=== PATIENT | female | born 1960 | race Asian ===

== ENCOUNTER → 2017-03-07 | Outpatient (CLI) | payer MEDICARE, OTHER ==
[2017-03-07 11:43] LABS: AADO2 Arterial 44.3 mmHg (7.0-24.0); Allen Test ACCEPTAB; Arterial Base Excess 1.9 mmol/L (-3.0-3); Arterial Blood Gas Oxygen Sat 85.5 mmHG (95.0-98.0); Arterial COHb 0.1 % (0.0-3.0); Arterial Fraction of Oxyhgb 85.3 % (93.0-99.0); Arterial HCO3 27.8 mmol/L (22.0-26.0); Arterial MetHb 0.1 % (0.0-1.5); Arterial Total Hemglobin 14.7 g/dl (12.0-18.0); Arterial pCO2 48.2 mmhg (35-45); MODE ROOM AIR; Site Left Radial
== END | disposition home or self-care (01) ==
LOC: PUL 11:01
DX: J43.8 Other emphysema (principal)
CPT/HCPCS: 36600; 82803

== ENCOUNTER 2018-02-10 08:18 | Inpatient (IN) | payer MEDICARE, OTHER ==
[2018-02-10] MEDS: ALBUTEROL 0.5% (NEB) 2.5 MG/0.5 ML AMP INH (08:36)
[2018-02-10 08:48] LABS: ADD MAN DIFF? NO
[2018-02-10 08:50] LABS: WHITE BLOOD COUNT 12.9 10^3/ul (4.8-10.8)
[2018-02-10 08:50] LABS: ABNORMAL IP MESSAGE 1; BASOPHIL # 0.1 10^3/ul (0.0-0.1); BASOPHILS % 0.5 % (0.0-2.0); EOSINOPHILS # 0.2 10^3/ul (0.0-0.5); EOSINOPHILS % 1.6 % (0.0-7.0); HEMATOCRIT 42.9 % (37.0-47.0); HEMOGLOBIN 13.5 g/dl (12.0-16.0); LYMPHOCYTES # 2.3 10^3/ul (0.8-2.9); MEAN CORPUSCULAR HEMOGLOBIN 30.1 pg (29.0-33.0); MEAN CORPUSCULAR HGB CONC 31.5 g/dl (32.0-37.0); MEAN CORPUSCULAR VOLUME 95.8 fl (82.0-101.0); MEAN PLATELET VOLUME 9.4 fl (7.4-10.4); MONOCYTES % 15.5 % (0.0-11.0); NEUTROPHIL # 8.2 10^3/ul (1.6-7.5); NEUTROPHILS % 63.9 % (39.0-77.0); PLATELET COUNT 382 10^3/UL (140-415); RED BLOOD COUNT 4.48 10^6/ul (4.20-5.40); RED CELL DISTRIBUTION WIDTH 12.3 % (11.5-14.5)
[2018-02-10 08:55] LABS: POSITIVE DIFF @See below
[2018-02-10] MEDS: METHYLPREDNISOLONE 125 MG INJ IV ×3 (08:57→17:04)
[2018-02-10 09:18] LABS: ALANINE AMINOTRANSFERASE 14 IU/L (13-69); ALBUMIN 4.4 g/dl (3.3-4.9); ALBUMIN/GLOBULIN RATIO 1.22; ALKALINE PHOSPHATASE 94 IU/L (42-121); ANION GAP 9 (5-13); ASPARTATE AMINO TRANSFERASE 34 IU/L (15-46); BILIRUBIN,INDIRECT 0.2 mg/dl (0-1.1); BILIRUBIN,TOTAL 0.2 mg/dl (0.2-1.3); BLOOD UREA NITROGEN 8 mg/dl (7-20); CALCIUM 9.4 mg/dl (8.4-10.2); CARBON DIOXIDE 38 mmol/L (21-31); CHLORIDE 96 mmol/L (97-110); CREATININE 0.54 mg/dl (0.44-1.00); Estimated GFR > 60 mL/min (>60); GLUCOSE 174 mg/dl (70-220); POTASSIUM 4.7 mmol/L (3.5-5.1); SODIUM 143 mmol/L (135-144)
[2018-02-10 09:30] LABS: TROPONIN-I < 0.012 ng/ml (0.000-0.120)
[2018-02-10] MEDS: ONDANSETRON 4 MG INJ IV (10:19)
[2018-02-10] MEDS: HYDROmorphONE 1 MG/ML SYG IV (10:20)
[2018-02-10] MEDS: CEFTRIAXONE 1 GM/50 ML (PMX) 50 ML IVPB (10:20)
[2018-02-10] MEDS ORDERED: ONDANSETRON 4 MG INJ IV ×2 (10:30→11:00)
[2018-02-10] MEDS ORDERED: ACETAMINOPHEN 325 MG TAB PO ×2 (10:30→11:00)
[2018-02-10] MEDS ORDERED: NACL 0.9% 3 ML SYG IV (11:00)
[2018-02-10] MEDS ORDERED: LIFITEGRAST BOTH EYES (11:00)
[2018-02-10] MEDS ORDERED: MAGNESIUM HYDROXIDE 30ML CUP PO (11:00)
[2018-02-10] MEDS: AZITHROMYCIN 500MG/NS (PMX) 250 ML IV (11:06)
[2018-02-10] MEDS: IPRATROPIUM (NEB) 0.5 MG/2.5 ML AMP NEB ×3 (13:19→20:19)
[2018-02-10] MEDS: LIFITEGRAST XX ×2 (15:46→19:30)
[2018-02-10] MEDS: [UNRECOGNIZED DRUG - OTHER] XX ×2 (15:46→19:30)
[2018-02-10] MEDS: CHOLECALCIFEROL 400 UNITS TAB PO ×2 (16:43→21:11)
[2018-02-10] MEDS: LOSARTAN 25 MG TAB PO (16:43)
[2018-02-10] MEDS: LEVOFLOXACIN 250MG/D5W (PMX) 50 ML IVPB ×2 (17:07→18:08)
[2018-02-10] MEDS: MONTELUKAST 10 MG TAB PO (21:11)
[2018-02-10] MEDS: EZETIMIBE 10 MG TAB PO (21:11)
[2018-02-11] MEDS: METHYLPREDNISOLONE 125 MG INJ IV ×4 (00:36→18:15)
[2018-02-11] MEDS: IPRATROPIUM (NEB) 0.5 MG/2.5 ML AMP NEB ×6 (01:00→20:55)
[2018-02-11] MEDS: [UNRECOGNIZED DRUG - OTHER] XX ×3 (03:30→19:30)
[2018-02-11] MEDS: LIFITEGRAST XX ×3 (03:30→19:30)
[2018-02-11] MEDS: PANTOPRAZOLE (EC) 40 MG TAB PO (05:32)
[2018-02-11 05:59] LABS: ADD MAN DIFF? NO
[2018-02-11 06:13] LABS: WHITE BLOOD COUNT 12.5 10^3/ul (4.8-10.8)
[2018-02-11 06:13] LABS: ABNORMAL IP MESSAGE 1; BASOPHILS % 0.2 % (0.0-2.0); HEMATOCRIT 37.4 % (37.0-47.0); HEMOGLOBIN 11.8 g/dl (12.0-16.0); LYMPHOCYTES # 0.6 10^3/ul (0.8-2.9); LYMPHOCYTES % 4.7 % (15.0-51.0); MEAN CORPUSCULAR HEMOGLOBIN 29.6 pg (29.0-33.0); MEAN CORPUSCULAR HGB CONC 31.6 g/dl (32.0-37.0); MEAN CORPUSCULAR VOLUME 93.7 fl (82.0-101.0); MEAN PLATELET VOLUME 9.4 fl (7.4-10.4); MONOCYTE # 0.5 10^3/ul (0.3-0.9); MONOCYTES % 3.6 % (0.0-11.0); NEUTROPHIL # 11.3 10^3/ul (1.6-7.5); NEUTROPHILS % 90.4 % (39.0-77.0); PLATELET COUNT 391 10^3/UL (140-415); RED BLOOD COUNT 3.99 10^6/ul (4.20-5.40); RED CELL DISTRIBUTION WIDTH 12.3 % (11.5-14.5)
[2018-02-11 06:28] LABS: POSITIVE DIFF @See below
[2018-02-11 06:30] LABS: ANION GAP 6 (5-13); BLOOD UREA NITROGEN 13 mg/dl (7-20); CARBON DIOXIDE 35 mmol/L (21-31); CHLORIDE 98 mmol/L (97-110); CREATININE 0.49 mg/dl (0.44-1.00); Estimated GFR > 60 mL/min (>60); GLUCOSE 154 mg/dl (70-220); MAGNESIUM 2.4 mg/dl (1.7-2.5); POTASSIUM 4.9 mmol/L (3.5-5.1); SODIUM 139 mmol/L (135-144)
[2018-02-11 06:52] LABS: HEMOGLOBIN A1C 5.8 % (0-5.9)
[2018-02-11] MEDS: CHOLECALCIFEROL 400 UNITS TAB PO ×3 (08:54→21:41)
[2018-02-11] MEDS: LOSARTAN 25 MG TAB PO (08:55)
[2018-02-11] MEDS: ENOXAPARIN 40 MG/0.4 ML SYG SC (08:57)
[2018-02-11] MEDS ORDERED: INFLUENZA VIRUS VACCINE 0.5 ML (DISPENSING) IM* (10:00)
[2018-02-11] MEDS: BUDESONIDE (NEB) 0.5MG/2ML AMP HHN ×2 (13:33→20:55)
[2018-02-11] MEDS: LEVALBUTEROL (NEB) 1.25 MG/0.5 ML AMP HHN ×3 (13:33→20:55)
[2018-02-11] MEDS: GUAIFENESIN/CODEINE 5ML CUP PO (16:15)
[2018-02-11] MEDS: LEVOFLOXACIN 750MG/D5W (PMX) 150 ML IVPB (16:15)
[2018-02-11] MEDS: MONTELUKAST 10 MG TAB PO (21:41)
[2018-02-11] MEDS: EZETIMIBE 10 MG TAB PO (21:41)
[2018-02-12] MEDS: METHYLPREDNISOLONE 125 MG INJ IV ×2 (01:17→06:13)
[2018-02-12] MEDS: IPRATROPIUM (NEB) 0.5 MG/2.5 ML AMP NEB ×4 (02:07→21:13)
[2018-02-12] MEDS: LEVALBUTEROL (NEB) 1.25 MG/0.5 ML AMP HHN ×4 (02:07→21:13)
[2018-02-12] MEDS: [UNRECOGNIZED DRUG - OTHER] XX ×3 (03:30→21:40)
[2018-02-12] MEDS: LIFITEGRAST XX ×3 (03:30→21:40)
[2018-02-12] MEDS: PANTOPRAZOLE (EC) 40 MG TAB PO (06:13)
[2018-02-12 07:17] LABS: ADD MAN DIFF? NO
[2018-02-12 07:21] LABS: WHITE BLOOD COUNT 20.4 10^3/ul (4.8-10.8)
[2018-02-12 07:21] LABS: ABNORMAL IP MESSAGE 1; BASOPHILS % 0.1 % (0.0-2.0); HEMATOCRIT 37.2 % (37.0-47.0); HEMOGLOBIN 11.9 g/dl (12.0-16.0); LYMPHOCYTES # 0.6 10^3/ul (0.8-2.9); LYMPHOCYTES % 2.9 % (15.0-51.0); MEAN CORPUSCULAR HEMOGLOBIN 29.8 pg (29.0-33.0); MEAN CORPUSCULAR VOLUME 93.2 fl (82.0-101.0); MEAN PLATELET VOLUME 9.3 fl (7.4-10.4); MONOCYTE # 0.9 10^3/ul (0.3-0.9); MONOCYTES % 4.5 % (0.0-11.0); NEUTROPHIL # 18.5 10^3/ul (1.6-7.5); NEUTROPHILS % 90.6 % (39.0-77.0); NUCLEATED RED BLOOD CELLS% 0.1 /100WBC (0.0-0.0); PLATELET COUNT 435 10^3/UL (140-415); RED BLOOD COUNT 3.99 10^6/ul (4.20-5.40); RED CELL DISTRIBUTION WIDTH 12.4 % (11.5-14.5)
[2018-02-12 07:25] LABS: POSITIVE DIFF @See below
[2018-02-12 07:55] LABS: ANION GAP 9 (5-13); BLOOD UREA NITROGEN 20 mg/dl (7-20); CARBON DIOXIDE 35 mmol/L (21-31); CHLORIDE 96 mmol/L (97-110); CREATININE 0.67 mg/dl (0.44-1.00); Estimated GFR > 60 mL/min (>60); GLUCOSE 175 mg/dl (70-220); MAGNESIUM 2.2 mg/dl (1.7-2.5); PHOSPHORUS 4.6 mg/dl (2.5-4.9); POTASSIUM 4.4 mmol/L (3.5-5.1); SODIUM 140 mmol/L (135-144)
[2018-02-12] MEDS: BUDESONIDE (NEB) 0.5MG/2ML AMP HHN ×2 (08:26→21:13)
[2018-02-12] MEDS: LOSARTAN 25 MG TAB PO (09:44)
[2018-02-12] MEDS: CHOLECALCIFEROL 400 UNITS TAB PO ×3 (09:44→21:03)
[2018-02-12] MEDS: ENOXAPARIN 40 MG/0.4 ML SYG SC (09:47)
[2018-02-12] MEDS: SOD CHLORIDE 0.9% 1,000 ML IV (11:09)
[2018-02-12] MEDS: predniSONE 20 MG TAB PO (12:09)
[2018-02-12] MEDS: NYSTATIN SUSP 5 ML CUP PO ×3 (12:10→21:03)
[2018-02-12] MEDS: LEVOFLOXACIN 750MG/D5W (PMX) 150 ML IVPB (15:06)
[2018-02-12] MEDS: MONTELUKAST 10 MG TAB PO (21:03)
[2018-02-12] MEDS: EZETIMIBE 10 MG TAB PO (21:03)
[2018-02-13] MEDS: IPRATROPIUM (NEB) 0.5 MG/2.5 ML AMP NEB ×4 (02:00→19:19)
[2018-02-13] MEDS: LEVALBUTEROL (NEB) 1.25 MG/0.5 ML AMP HHN ×4 (02:00→19:19)
[2018-02-13] MEDS: LIFITEGRAST XX ×3 (03:30→19:30)
[2018-02-13] MEDS: [UNRECOGNIZED DRUG - OTHER] XX ×3 (03:30→19:30)
[2018-02-13] MEDS: PANTOPRAZOLE (EC) 40 MG TAB PO (05:47)
[2018-02-13 06:28] LABS: ADD MAN DIFF? NO
[2018-02-13 06:51] LABS: ABNORMAL IP MESSAGE 1; BASOPHIL # 0.1 10^3/ul (0.0-0.1); BASOPHILS % 0.3 % (0.0-2.0); HEMATOCRIT 36.5 % (37.0-47.0); HEMOGLOBIN 11.8 g/dl (12.0-16.0); LYMPHOCYTES # 1.5 10^3/ul (0.8-2.9); LYMPHOCYTES % 6.8 % (15.0-51.0); MEAN CORPUSCULAR HEMOGLOBIN 30.2 pg (29.0-33.0); MEAN CORPUSCULAR HGB CONC 32.3 g/dl (32.0-37.0); MEAN CORPUSCULAR VOLUME 93.4 fl (82.0-101.0); MEAN PLATELET VOLUME 9.1 fl (7.4-10.4); MONOCYTES % 9.2 % (0.0-11.0); NEUTROPHIL # 17.7 10^3/ul (1.6-7.5); NEUTROPHILS % 79.9 % (39.0-77.0); PLATELET COUNT 392 10^3/UL (140-415); RED BLOOD COUNT 3.91 10^6/ul (4.20-5.40); RED CELL DISTRIBUTION WIDTH 12.4 % (11.5-14.5)
[2018-02-13 06:51] LABS: WHITE BLOOD COUNT 22.1 10^3/ul (4.8-10.8)
[2018-02-13 06:56] LABS: POSITIVE DIFF @See below
[2018-02-13 07:26] LABS: ANION GAP 5 (5-13); BLOOD UREA NITROGEN 18 mg/dl (7-20); CALCIUM 8.6 mg/dl (8.4-10.2); CARBON DIOXIDE 38 mmol/L (21-31); CHLORIDE 98 mmol/L (97-110); CREATININE 0.61 mg/dl (0.44-1.00); Estimated GFR > 60 mL/min (>60); GLUCOSE 124 mg/dl (70-220); MAGNESIUM 2.2 mg/dl (1.7-2.5); PHOSPHORUS 3.4 mg/dl (2.5-4.9); POTASSIUM 4.3 mmol/L (3.5-5.1); SODIUM 141 mmol/L (135-144)
[2018-02-13] MEDS: BUDESONIDE (NEB) 0.5MG/2ML AMP HHN ×2 (08:47→19:18)
[2018-02-13] MEDS: predniSONE 20 MG TAB PO (09:00)
[2018-02-13] MEDS: LOSARTAN 25 MG TAB PO ×2 (09:56→15:32)
[2018-02-13] MEDS: CHOLECALCIFEROL 400 UNITS TAB PO ×3 (09:56→20:52)
[2018-02-13] MEDS: METHYLPREDNISOLONE 40 MG INJ IV ×3 (09:56→21:00)
[2018-02-13] MEDS: NYSTATIN SUSP 5 ML CUP PO ×4 (09:56→20:52)
[2018-02-13] MEDS: ENOXAPARIN 40 MG/0.4 ML SYG SC (10:07)
[2018-02-13] MEDS: SOD CHLORIDE 0.9% 1,000 ML IV (10:30)
[2018-02-13] MEDS: LEVOFLOXACIN 750MG/D5W (PMX) 150 ML IVPB (14:41)
[2018-02-13] MEDS: EZETIMIBE 10 MG TAB PO (20:51)
[2018-02-13] MEDS: MONTELUKAST 10 MG TAB PO (20:52)
[2018-02-14] MEDS: LEVALBUTEROL (NEB) 1.25 MG/0.5 ML AMP HHN ×4 (01:21→19:57)
[2018-02-14] MEDS: IPRATROPIUM (NEB) 0.5 MG/2.5 ML AMP NEB ×4 (01:21→19:58)
[2018-02-14] MEDS: [UNRECOGNIZED DRUG - OTHER] XX ×3 (02:35→19:30)
[2018-02-14] MEDS: LIFITEGRAST XX ×3 (02:35→19:30)
[2018-02-14] MEDS: METHYLPREDNISOLONE 40 MG INJ IV ×3 (05:10→21:03)
[2018-02-14] MEDS: PANTOPRAZOLE (EC) 40 MG TAB PO (05:10)
[2018-02-14 07:02] LABS: WHITE BLOOD COUNT 19.4 10^3/ul (4.8-10.8)
[2018-02-14 07:02] LABS: ABNORMAL IP MESSAGE 1; HEMATOCRIT 37.9 % (37.0-47.0); HEMOGLOBIN 12.2 g/dl (12.0-16.0); MEAN CORPUSCULAR HEMOGLOBIN 29.7 pg (29.0-33.0); MEAN CORPUSCULAR HGB CONC 32.2 g/dl (32.0-37.0); MEAN CORPUSCULAR VOLUME 92.2 fl (82.0-101.0); MEAN PLATELET VOLUME 8.7 fl (7.4-10.4); PLATELET COUNT 375 10^3/UL (140-415); RED BLOOD COUNT 4.11 10^6/ul (4.20-5.40); RED CELL DISTRIBUTION WIDTH 12.4 % (11.5-14.5)
[2018-02-14 07:12] LABS: ADD MAN DIFF? YES; POSITIVE DIFF @See below
[2018-02-14 07:20] LABS: ANION GAP 7 (5-13); BLOOD UREA NITROGEN 17 mg/dl (7-20); CALCIUM 8.7 mg/dl (8.4-10.2); CARBON DIOXIDE 38 mmol/L (21-31); CHLORIDE 95 mmol/L (97-110); CREATININE 0.53 mg/dl (0.44-1.00); Estimated GFR > 60 mL/min (>60); GLUCOSE 140 mg/dl (70-220); MAGNESIUM 2.2 mg/dl (1.7-2.5); POTASSIUM 4.1 mmol/L (3.5-5.1); SODIUM 140 mmol/L (135-144)
[2018-02-14] MEDS: BUDESONIDE (NEB) 0.5MG/2ML AMP HHN ×2 (07:52→19:57)
[2018-02-14] MEDS: morphine 2 MG INJ IV (08:27)
[2018-02-14] MEDS ORDERED: predniSONE 20 MG TAB PO (09:00)
[2018-02-14 09:04] LABS: ANISOCYTOSIS 1+ (0-0); BAND NEUTROPHILS #M 0.9 10^3/ul (0.0-0.6); BAND NEUTROPHILS % (M) 5 % (0-4); LYMPHOCYTES #M 0.7 10^3/ul (0.8-2.9); LYMPHOCYTES % (M) 4 % (15-51); MONOCYTE #M 0.9 10^3/ul (0.3-0.9); MONOCYTES % (M) 5 % (0-11); MYELOCYTES #M 0.3 10^3/ul (0.0-0.0); MYELOCYTES % (M) 2 % (0-0); PLATELET ESTIMATE NORMAL; POIKILOCYTOSIS 1+ (0-0); POLYCHROMASIA 1+ (0-0); REACTIVE LYMPHOCYTES #M 0.1 10^3/ul (0.0-0.0); REACTIVE LYMPHOCYTES% (M) 1 % (0-0); SEG NEUT #M 16.3 10^3/ul (1.6-7.5); SEGMENTED NEUTROPHILS (M) % 83 % (39-77); SMUDGE%M 9 % (0-0)
[2018-02-14 09:22] LABS: TROPONIN-I < 0.012 ng/ml (0.000-0.120)
[2018-02-14] MEDS: NYSTATIN SUSP 5 ML CUP PO ×4 (09:23→20:18)
[2018-02-14] MEDS: CHOLECALCIFEROL 400 UNITS TAB PO ×3 (09:23→20:17)
[2018-02-14] MEDS: LOSARTAN 50 MG TAB PO (09:23)
[2018-02-14] MEDS: ENOXAPARIN 40 MG/0.4 ML SYG SC (09:32)
[2018-02-14] MEDS: LEVOFLOXACIN 750MG/D5W (PMX) 150 ML IVPB (15:39)
[2018-02-14] MEDS: LABETALOL HCL 20MG INJ IV (20:17)
[2018-02-14] MEDS: MONTELUKAST 10 MG TAB PO (20:18)
[2018-02-14] MEDS: EZETIMIBE 10 MG TAB PO (20:18)
[2018-02-15] MEDS: LABETALOL HCL 20MG INJ IV (00:13)
[2018-02-15] MEDS: LEVALBUTEROL (NEB) 1.25 MG/0.5 ML AMP HHN ×4 (01:36→19:55)
[2018-02-15] MEDS: IPRATROPIUM (NEB) 0.5 MG/2.5 ML AMP NEB ×4 (01:38→19:55)
[2018-02-15] MEDS: LIFITEGRAST XX ×2 (03:01→11:30)
[2018-02-15] MEDS: [UNRECOGNIZED DRUG - OTHER] XX ×2 (03:01→11:30)
[2018-02-15] MEDS: PANTOPRAZOLE (EC) 40 MG TAB PO (05:36)
[2018-02-15] MEDS: METHYLPREDNISOLONE 40 MG INJ IV ×3 (05:36→20:48)
[2018-02-15 06:08] LABS: ADD MAN DIFF? NO
[2018-02-15 06:13] LABS: WHITE BLOOD COUNT 24.5 10^3/ul (4.8-10.8)
[2018-02-15 06:13] LABS: ABNORMAL IP MESSAGE 1; BASOPHIL # 0.1 10^3/ul (0.0-0.1); BASOPHILS % 0.4 % (0.0-2.0); HEMATOCRIT 37.9 % (37.0-47.0); HEMOGLOBIN 12.4 g/dl (12.0-16.0); LYMPHOCYTES # 1.1 10^3/ul (0.8-2.9); LYMPHOCYTES % 4.5 % (15.0-51.0); MEAN CORPUSCULAR HEMOGLOBIN 30.2 pg (29.0-33.0); MEAN CORPUSCULAR HGB CONC 32.7 g/dl (32.0-37.0); MEAN CORPUSCULAR VOLUME 92.4 fl (82.0-101.0); MEAN PLATELET VOLUME 8.8 fl (7.4-10.4); MONOCYTE # 1.2 10^3/ul (0.3-0.9); MONOCYTES % 5.1 % (0.0-11.0); NEUTROPHIL # 20.8 10^3/ul (1.6-7.5); PLATELET COUNT 366 10^3/UL (140-415); RED CELL DISTRIBUTION WIDTH 12.4 % (11.5-14.5)
[2018-02-15 06:28] LABS: POSITIVE DIFF @See below
[2018-02-15 06:49] LABS: ANION GAP 8 (5-13); BLOOD UREA NITROGEN 22 mg/dl (7-20); CARBON DIOXIDE 38 mmol/L (21-31); CHLORIDE 94 mmol/L (97-110); CREATININE 0.51 mg/dl (0.44-1.00); Estimated GFR > 60 mL/min (>60); GLUCOSE 150 mg/dl (70-220); MAGNESIUM 2.2 mg/dl (1.7-2.5); PHOSPHORUS 5.1 mg/dl (2.5-4.9); POTASSIUM 4.6 mmol/L (3.5-5.1); SODIUM 140 mmol/L (135-144)
[2018-02-15] MEDS: BUDESONIDE (NEB) 0.5MG/2ML AMP HHN ×2 (08:00→19:56)
[2018-02-15] MEDS: CHOLECALCIFEROL 400 UNITS TAB PO ×3 (09:04→20:48)
[2018-02-15] MEDS: LOSARTAN 50 MG TAB PO (09:05)
[2018-02-15] MEDS: NYSTATIN SUSP 5 ML CUP PO ×4 (09:05→20:48)
[2018-02-15] MEDS: ENOXAPARIN 40 MG/0.4 ML SYG SC (09:11)
[2018-02-15] MEDS: LEVOFLOXACIN 750MG/D5W (PMX) 150 ML IVPB (14:53)
[2018-02-15] MEDS: MONTELUKAST 10 MG TAB PO (20:48)
[2018-02-15] MEDS: EZETIMIBE 10 MG TAB PO (20:48)
[2018-02-15] MEDS: XIIDRA EYE BOTH EYES (21:00)
[2018-02-16] MEDS: IPRATROPIUM (NEB) 0.5 MG/2.5 ML AMP NEB ×3 (01:27→19:29)
[2018-02-16] MEDS: LEVALBUTEROL (NEB) 1.25 MG/0.5 ML AMP HHN ×4 (01:27→19:29)
[2018-02-16] MEDS: LABETALOL HCL 20MG INJ IV (03:57)
[2018-02-16] MEDS: METHYLPREDNISOLONE 40 MG INJ IV ×3 (05:32→21:22)
[2018-02-16] MEDS: PANTOPRAZOLE (EC) 40 MG TAB PO (05:32)
[2018-02-16 06:33] LABS: ABNORMAL IP MESSAGE 1; HEMATOCRIT 37.2 % (37.0-47.0); HEMOGLOBIN 12.3 g/dl (12.0-16.0); MEAN CORPUSCULAR HEMOGLOBIN 30.2 pg (29.0-33.0); MEAN CORPUSCULAR HGB CONC 33.1 g/dl (32.0-37.0); MEAN CORPUSCULAR VOLUME 91.4 fl (82.0-101.0); MEAN PLATELET VOLUME 8.9 fl (7.4-10.4); PLATELET COUNT 341 10^3/UL (140-415); RED BLOOD COUNT 4.07 10^6/ul (4.20-5.40); RED CELL DISTRIBUTION WIDTH 12.4 % (11.5-14.5)
[2018-02-16 06:44] LABS: ADD MAN DIFF? YES; POSITIVE DIFF @See below
[2018-02-16 06:57] LABS: ANION GAP 6 (5-13); BLOOD UREA NITROGEN 24 mg/dl (7-20); CALCIUM 9.1 mg/dl (8.4-10.2); CARBON DIOXIDE 40 mmol/L (21-31); CHLORIDE 91 mmol/L (97-110); CREATININE 0.59 mg/dl (0.44-1.00); Estimated GFR > 60 mL/min (>60); GLUCOSE 146 mg/dl (70-220); MAGNESIUM 2.2 mg/dl (1.7-2.5); PHOSPHORUS 5.5 mg/dl (2.5-4.9); POTASSIUM 4.8 mmol/L (3.5-5.1); SODIUM 137 mmol/L (135-144)
[2018-02-16] MEDS: BUDESONIDE (NEB) 0.5MG/2ML AMP HHN ×2 (08:13→19:29)
[2018-02-16] MEDS: XIIDRA EYE BOTH EYES ×2 (09:00→21:21)
[2018-02-16] MEDS: IOHEXOL 300MG/ML 150 ML BTL (10:02)
[2018-02-16] MEDS: NYSTATIN SUSP 5 ML CUP PO ×4 (10:02→21:19)
[2018-02-16] MEDS: SOD CHLORIDE 0.9% 100 ML (10:02)
[2018-02-16] MEDS: LOSARTAN 50 MG TAB PO (10:03)
[2018-02-16] MEDS: CHOLECALCIFEROL 400 UNITS TAB PO ×3 (10:03→21:19)
[2018-02-16 10:08] LABS: ANISOCYTOSIS 1+ (0-0); BAND NEUTROPHILS #M 0.8 10^3/ul (0.0-0.6); BAND NEUTROPHILS % (M) 4 % (0-4); LYMPHOCYTES #M 0.6 10^3/ul (0.8-2.9); LYMPHOCYTES % (M) 3 % (15-51); MONOCYTE #M 0.6 10^3/ul (0.3-0.9); MONOCYTES % (M) 3 % (0-11); MYELOCYTES #M 0.8 10^3/ul (0.0-0.0); MYELOCYTES % (M) 4 % (0-0); PLATELET ESTIMATE NORMAL; POLYCHROMASIA 1+ (0-0); REACTIVE LYMPHOCYTES #M 0.2 10^3/ul (0.0-0.0); REACTIVE LYMPHOCYTES% (M) 1 % (0-0); SEG NEUT #M 18.9 10^3/ul (1.6-7.5); SEGMENTED NEUTROPHILS (M) % 85 % (39-77); SMUDGE%M 4 % (0-0)
[2018-02-16] MEDS: ENOXAPARIN 40 MG/0.4 ML SYG SC (11:11)
[2018-02-16 14:21] LABS: ALPHA 1 ANTITRYPSIN 170 mg/dL (83-199)
[2018-02-16] MEDS: LEVOFLOXACIN 750MG/D5W (PMX) 150 ML IVPB (17:15)
[2018-02-16] MEDS: MONTELUKAST 10 MG TAB PO (21:19)
[2018-02-16] MEDS: EZETIMIBE 10 MG TAB PO (21:19)
[2018-02-17] MEDS: IPRATROPIUM (NEB) 0.5 MG/2.5 ML AMP NEB ×6 (01:37→20:00)
[2018-02-17] MEDS: LEVALBUTEROL (NEB) 1.25 MG/0.5 ML AMP HHN ×4 (01:37→19:33)
[2018-02-17] MEDS: PANTOPRAZOLE (EC) 40 MG TAB PO (06:09)
[2018-02-17 06:17] LABS: ADD MAN DIFF? NO
[2018-02-17 06:33] LABS: BASOPHIL # 0.1 10^3/ul (0.0-0.1); BASOPHILS % 0.3 % (0.0-2.0); HEMATOCRIT 37.6 % (37.0-47.0); HEMOGLOBIN 12.3 g/dl (12.0-16.0); LYMPHOCYTES # 0.8 10^3/ul (0.8-2.9); LYMPHOCYTES % 4.2 % (15.0-51.0); MEAN CORPUSCULAR HGB CONC 32.7 g/dl (32.0-37.0); MEAN CORPUSCULAR VOLUME 91.7 fl (82.0-101.0); MEAN PLATELET VOLUME 8.9 fl (7.4-10.4); MONOCYTES % 5.2 % (0.0-11.0); NEUTROPHIL # 16.7 10^3/ul (1.6-7.5); NEUTROPHILS % 85.4 % (39.0-77.0); PLATELET COUNT 312 10^3/UL (140-415); RED CELL DISTRIBUTION WIDTH 12.3 % (11.5-14.5)
[2018-02-17 06:33] LABS: WHITE BLOOD COUNT 19.5 10^3/ul (4.8-10.8)
[2018-02-17 07:01] LABS: ANION GAP 6 (5-13); BLOOD UREA NITROGEN 20 mg/dl (7-20); CALCIUM 8.7 mg/dl (8.4-10.2); CARBON DIOXIDE 39 mmol/L (21-31); CHLORIDE 92 mmol/L (97-110); CREATININE 0.52 mg/dl (0.44-1.00); Estimated GFR > 60 mL/min (>60); GLUCOSE 154 mg/dl (70-220); MAGNESIUM 2.2 mg/dl (1.7-2.5); POTASSIUM 5.1 mmol/L (3.5-5.1); SODIUM 137 mmol/L (135-144)
[2018-02-17] MEDS: BUDESONIDE (NEB) 0.5MG/2ML AMP HHN ×2 (08:53→19:33)
[2018-02-17] MEDS: XIIDRA EYE BOTH EYES ×2 (09:51→20:42)
[2018-02-17] MEDS: METHYLPREDNISOLONE 40 MG INJ IV ×2 (09:51→20:36)
[2018-02-17] MEDS: NYSTATIN SUSP 5 ML CUP PO ×3 (09:51→17:02)
[2018-02-17] MEDS: LOSARTAN 50 MG TAB PO (09:52)
[2018-02-17] MEDS: CHOLECALCIFEROL 400 UNITS TAB PO ×3 (09:52→20:36)
[2018-02-17] MEDS: ENOXAPARIN 40 MG/0.4 ML SYG SC (10:00)
[2018-02-17] MEDS: LEVOFLOXACIN 750MG/D5W (PMX) 150 ML IVPB (17:02)
[2018-02-17] MEDS: EZETIMIBE 10 MG TAB PO (20:36)
[2018-02-17] MEDS: MONTELUKAST 10 MG TAB PO (20:36)
[2018-02-17] MEDS: NYSTATIN (100000 UNIT/ML PO SYG) PO (22:34)
[2018-02-18] MEDS: IPRATROPIUM (NEB) 0.5 MG/2.5 ML AMP NEB ×4 (01:57→19:31)
[2018-02-18] MEDS: LEVALBUTEROL (NEB) 1.25 MG/0.5 ML AMP HHN ×4 (01:57→19:31)
[2018-02-18] MEDS: PANTOPRAZOLE (EC) 40 MG TAB PO (06:15)
[2018-02-18] MEDS: BUDESONIDE (NEB) 0.5MG/2ML AMP HHN ×2 (07:38→19:40)
[2018-02-18 07:55] LABS: ADD MAN DIFF? NO
[2018-02-18 07:58] LABS: WHITE BLOOD COUNT 19.1 10^3/ul (4.8-10.8)
[2018-02-18 07:58] LABS: BASOPHIL # 0.1 10^3/ul (0.0-0.1); BASOPHILS % 0.3 % (0.0-2.0); HEMATOCRIT 39.1 % (37.0-47.0); HEMOGLOBIN 12.9 g/dl (12.0-16.0); LYMPHOCYTES % 5.3 % (15.0-51.0); MEAN CORPUSCULAR HEMOGLOBIN 30.1 pg (29.0-33.0); MEAN CORPUSCULAR VOLUME 91.1 fl (82.0-101.0); MONOCYTE # 1.3 10^3/ul (0.3-0.9); MONOCYTES % 6.7 % (0.0-11.0); NEUTROPHIL # 15.8 10^3/ul (1.6-7.5); NEUTROPHILS % 82.7 % (39.0-77.0); PLATELET COUNT 299 10^3/UL (140-415); RED BLOOD COUNT 4.29 10^6/ul (4.20-5.40); RED CELL DISTRIBUTION WIDTH 12.6 % (11.5-14.5)
[2018-02-18] MEDS: CHOLECALCIFEROL 400 UNITS TAB PO ×3 (08:10→21:41)
[2018-02-18] MEDS: METHYLPREDNISOLONE 40 MG INJ IV ×2 (08:10→21:32)
[2018-02-18] MEDS: NYSTATIN (100000 UNIT/ML PO SYG) PO ×4 (08:11→21:42)
[2018-02-18] MEDS: LOSARTAN 50 MG TAB PO (08:11)
[2018-02-18 08:16] LABS: ANION GAP 7 (5-13); BLOOD UREA NITROGEN 21 mg/dl (7-20); CALCIUM 8.9 mg/dl (8.4-10.2); CARBON DIOXIDE 37 mmol/L (21-31); CHLORIDE 92 mmol/L (97-110); Estimated GFR > 60 mL/min (>60); GLUCOSE 125 mg/dl (70-220); MAGNESIUM 2.2 mg/dl (1.7-2.5); PHOSPHORUS 4.5 mg/dl (2.5-4.9); POTASSIUM 4.4 mmol/L (3.5-5.1); SODIUM 136 mmol/L (135-144)
[2018-02-18] MEDS: ENOXAPARIN 40 MG/0.4 ML SYG SC (08:23)
[2018-02-18] MEDS: XIIDRA EYE BOTH EYES ×2 (08:28→21:42)
[2018-02-18] MEDS: LEVOFLOXACIN 750MG/D5W (PMX) 150 ML IVPB (15:31)
[2018-02-18] MEDS: DOCUSATE SODIUM 100 MG CAP PO (21:32)
[2018-02-18] MEDS: MONTELUKAST 10 MG TAB PO (21:41)
[2018-02-18] MEDS: EZETIMIBE 10 MG TAB PO (21:41)
[2018-02-19] MEDS: IPRATROPIUM (NEB) 0.5 MG/2.5 ML AMP NEB ×4 (01:02→19:26)
[2018-02-19] MEDS: LEVALBUTEROL (NEB) 1.25 MG/0.5 ML AMP HHN ×4 (01:03→19:26)
[2018-02-19 06:25] LABS: WHITE BLOOD COUNT 17.9 10^3/ul (4.8-10.8)
[2018-02-19 06:25] LABS: ABNORMAL IP MESSAGE 1; HEMATOCRIT 40.8 % (37.0-47.0); HEMOGLOBIN 13.4 g/dl (12.0-16.0); MEAN CORPUSCULAR HGB CONC 32.8 g/dl (32.0-37.0); MEAN CORPUSCULAR VOLUME 91.3 fl (82.0-101.0); MEAN PLATELET VOLUME 9.1 fl (7.4-10.4); PLATELET COUNT 309 10^3/UL (140-415); RED BLOOD COUNT 4.47 10^6/ul (4.20-5.40); RED CELL DISTRIBUTION WIDTH 12.6 % (11.5-14.5)
[2018-02-19 06:28] LABS: ADD MAN DIFF? YES; POSITIVE DIFF @See below
[2018-02-19] MEDS: PANTOPRAZOLE (EC) 40 MG TAB PO (07:24)
[2018-02-19] MEDS: BUDESONIDE (NEB) 0.5MG/2ML AMP HHN ×2 (08:54→19:26)
[2018-02-19] MEDS: METHYLPREDNISOLONE 40 MG INJ IV ×2 (08:58→21:08)
[2018-02-19] MEDS: CHOLECALCIFEROL 400 UNITS TAB PO ×3 (08:58→21:09)
[2018-02-19] MEDS: LOSARTAN 50 MG TAB PO (08:58)
[2018-02-19] MEDS: XIIDRA EYE BOTH EYES ×2 (09:00→21:11)
[2018-02-19] MEDS: ENOXAPARIN 40 MG/0.4 ML SYG SC (10:06)
[2018-02-19] MEDS: NYSTATIN (100000 UNIT/ML PO SYG) PO ×4 (11:16→21:00)
[2018-02-19] MEDS: LABETALOL HCL 20MG INJ IV (12:09)
[2018-02-19] MEDS: LEVOFLOXACIN 750MG/D5W (PMX) 150 ML IVPB (14:27)
[2018-02-19] MEDS: EZETIMIBE 10 MG TAB PO (21:08)
[2018-02-19] MEDS: MONTELUKAST 10 MG TAB PO (21:09)
[2018-02-20] MEDS: LEVALBUTEROL (NEB) 1.25 MG/0.5 ML AMP HHN ×4 (02:00→20:08)
[2018-02-20] MEDS: IPRATROPIUM (NEB) 0.5 MG/2.5 ML AMP NEB ×4 (02:00→20:08)
[2018-02-20] MEDS: PANTOPRAZOLE (EC) 40 MG TAB PO (06:20)
[2018-02-20] MEDS: BUDESONIDE (NEB) 0.5MG/2ML AMP HHN ×2 (07:54→20:08)
[2018-02-20] MEDS: CHOLECALCIFEROL 400 UNITS TAB PO ×3 (08:04→20:59)
[2018-02-20] MEDS: NYSTATIN SUSP 5 ML CUP PO ×4 (08:04→20:58)
[2018-02-20] MEDS: METHYLPREDNISOLONE 40 MG INJ IV ×2 (08:04→20:58)
[2018-02-20] MEDS: LOSARTAN 50 MG TAB PO (08:05)
[2018-02-20] MEDS: ENOXAPARIN 40 MG/0.4 ML SYG SC (08:16)
[2018-02-20] MEDS: XIIDRA EYE BOTH EYES ×2 (08:18→21:50)
[2018-02-20] MEDS: LABETALOL HCL 20MG INJ IV (09:45)
[2018-02-20] MEDS: LEVOFLOXACIN 750MG/D5W (PMX) 150 ML IVPB (15:05)
[2018-02-20] MEDS: MONTELUKAST 10 MG TAB PO (20:58)
[2018-02-20] MEDS: EZETIMIBE 10 MG TAB PO (20:59)
[2018-02-21] MEDS: IPRATROPIUM (NEB) 0.5 MG/2.5 ML AMP NEB ×4 (01:26→20:28)
[2018-02-21] MEDS: LEVALBUTEROL (NEB) 1.25 MG/0.5 ML AMP HHN ×4 (01:26→20:28)
[2018-02-21] MEDS: PANTOPRAZOLE (EC) 40 MG TAB PO (05:40)
[2018-02-21] MEDS: BUDESONIDE (NEB) 0.5MG/2ML AMP HHN ×2 (08:25→20:29)
[2018-02-21] MEDS: XIIDRA EYE BOTH EYES ×2 (09:29→21:09)
[2018-02-21] MEDS: NYSTATIN SUSP 5 ML CUP PO ×4 (09:30→21:11)
[2018-02-21] MEDS: METHYLPREDNISOLONE 40 MG INJ IV ×2 (09:31→21:11)
[2018-02-21] MEDS: LOSARTAN 50 MG TAB PO (09:31)
[2018-02-21] MEDS: CHOLECALCIFEROL 400 UNITS TAB PO ×3 (09:31→21:11)
[2018-02-21] MEDS: ENOXAPARIN 40 MG/0.4 ML SYG SC (09:46)
[2018-02-21] MEDS: LEVOFLOXACIN 750MG/D5W (PMX) 150 ML IVPB (14:32)
[2018-02-21] MEDS: MONTELUKAST 10 MG TAB PO (21:11)
[2018-02-21] MEDS: EZETIMIBE 10 MG TAB PO (21:11)
[2018-02-22] MEDS: LEVALBUTEROL (NEB) 1.25 MG/0.5 ML AMP HHN ×3 (01:48→14:04)
[2018-02-22] MEDS: IPRATROPIUM (NEB) 0.5 MG/2.5 ML AMP NEB ×3 (01:48→14:04)
[2018-02-22] MEDS: PANTOPRAZOLE (EC) 40 MG TAB PO (05:19)
[2018-02-22 06:55] LABS: ADD MAN DIFF? NO
[2018-02-22 07:10] LABS: WHITE BLOOD COUNT 22.1 10^3/ul (4.8-10.8)
[2018-02-22 07:10] LABS: BASOPHIL # 0.1 10^3/ul (0.0-0.1); BASOPHILS % 0.3 % (0.0-2.0); HEMATOCRIT 37.2 % (37.0-47.0); HEMOGLOBIN 12.3 g/dl (12.0-16.0); LYMPHOCYTES # 0.8 10^3/ul (0.8-2.9); LYMPHOCYTES % 3.4 % (15.0-51.0); MEAN CORPUSCULAR HEMOGLOBIN 29.9 pg (29.0-33.0); MEAN CORPUSCULAR HGB CONC 33.1 g/dl (32.0-37.0); MEAN CORPUSCULAR VOLUME 90.3 fl (82.0-101.0); MEAN PLATELET VOLUME 8.9 fl (7.4-10.4); MONOCYTE # 0.9 10^3/ul (0.3-0.9); MONOCYTES % 4.2 % (0.0-11.0); NEUTROPHIL # 19.6 10^3/ul (1.6-7.5); NEUTROPHILS % 88.4 % (39.0-77.0); PLATELET COUNT 365 10^3/UL (140-415); RED BLOOD COUNT 4.12 10^6/ul (4.20-5.40); RED CELL DISTRIBUTION WIDTH 12.6 % (11.5-14.5)
[2018-02-22 07:44] LABS: T3 UPTAKE 41.5 % (23.5-40.5); T4 (THYROXINE) 5.3 ug/dl (5.5-11.0)
[2018-02-22] MEDS: BUDESONIDE (NEB) 0.5MG/2ML AMP HHN (08:40)
[2018-02-22] MEDS: NYSTATIN SUSP 5 ML CUP PO ×3 (08:49→16:26)
[2018-02-22] MEDS: METHYLPREDNISOLONE 40 MG INJ IV (08:49)
[2018-02-22] MEDS: CHOLECALCIFEROL 400 UNITS TAB PO ×2 (08:50→12:21)
[2018-02-22] MEDS: XIIDRA EYE BOTH EYES (08:51)
[2018-02-22] MEDS: LOSARTAN 50 MG TAB PO (08:52)
[2018-02-22] MEDS: ENOXAPARIN 40 MG/0.4 ML SYG SC (09:02)
[2018-02-22] MEDS: LABETALOL 100 MG TAB PO (10:19)
[2018-02-22] MEDS: LEVOFLOXACIN 750MG/D5W (PMX) 150 ML IVPB (16:26)
== END 2018-02-22 18:52 | DRG 190 ==
LOC: TEL 02-14 15:22 → E/R 08:18 → TEL 10:30
DX: J44.1 Chronic obstructive pulmonary disease with (acute) exacerbation (principal); J18.9 Pneumonia, unspecified organism; J96.21 Acute and chronic respiratory failure with hypoxia; D17.71 Benign lipomatous neoplasm of kidney; R00.0 Tachycardia, unspecified; Z99.81 Dependence on supplemental oxygen; Z87.891 Personal history of nicotine dependence
CPT/HCPCS: 36415; 71045; 71250; 74177; 80048; 80053; 82103; 83036; 83735; 84100; 84436; 84443; 84479; 84484; 85025; 87040; 87070; 87400; 93005; 93306; 94640; 94644; 96374; 96375; 97161; 97167; 99285-25